=== PATIENT | female | born 1990 | race Two or more races ===

== ENCOUNTER → 2024-03-19 15:40 | Outpatient (CLI) | payer OTHER | END | disposition home or self-care (01) | LOC: PRENATAL 15:40 | PROVIDERS: ATTEND Obstetrics & Gynecology Maternal & Fetal Medicine | DX: O26.843 Uterine size-date discrepancy, third trimester (principal); O36.8130 Decreased fetal movements, third trimester, not applicable or unspecified; O99.013 Anemia complicating pregnancy, third trimester; Z3A.32 32 weeks gestation of pregnancy ==

== ENCOUNTER 2024-04-28 13:30 | Inpatient (IN) | payer OTHER ==
[~2024-04-28] VITALS: Ht 160 cm; Wt 68.0 kg
[2024-05-04 17:45] VITALS: BP 126/80
[2024-05-04] MEDS ORDERED: RINGERS SOLUTION,LACTATED 1,000 ML IV SCH (18:00)
[2024-05-04] MEDS ORDERED: PRENATAL TABLE1 EAC1 PO (18:00)
[2024-05-04] MEDS ORDERED: AMPICILLIN SODIUM 2,000 MG VIAL IV ONE (18:00)
[2024-05-04] MEDS ORDERED: IRON159 MG PO (18:01)
[2024-05-04 18:19] LABS: PH,URINE 6.5 (5.0-8.0); URINE APPEARANCE Clear; URINE BILIRRUBIN Negative (NEGATIVE); URINE BLOOD Negative; URINE COLOR Yellow; URINE GLUCOSE Negative (NEGATIVE); URINE LEUKOCYTE Negative; URINE NITRATE Negative; URINE PROTEIN Negative (NEGATIVE)
[2024-05-04 18:22] LABS: URINE BACTERIA 196.4 uL (0.0-1933); URINE EPITHELIAL CELLS 13.5 uL (0.0-38.8); URINE RBC 7.9 uL (0.0-20.8); URINE WBC 7.7 uL (0.0-23.2)
[2024-05-04 18:26] LABS: HEMATOCRIT 36.5 % (36.0-45.00); HEMOGLOBIN 12.4 g/dL (12.0-15.00); MEAN CELL VOLUME 85.3 fL (80.00-100.00); PLATELET COUNT 188 K/uL (150-450); RED BLOOD COUNT 4.28 M/uL (4.00-6.00); RED CELL DISTRIBUTION WIDTH 19.9 % (11.5-14.5)
[2024-05-04 18:29] LABS: URINE KETONE 40 (NEGATIVE)
[2024-05-04] MEDS ORDERED: MORPHINE SULFATE 4 MG/ML VIAL IV ONE (18:30)
[2024-05-04 18:39] LABS: INR < 0.93; PARTIAL THROMBOPLASTIN TIME 25.7 SECONDS (22.0-34.0); PROTHROMBIN TIME 9.9 SECONDS (9.0-11.5)
[2024-05-04 18:42] LABS: ALBUMIN 2.9 gm/dL (3.4-5.0); BILIRUBIN TOTAL 0.45 mg/dL (0.3-1.2); CALCIUM 8.8 mg/dL (8.5-10.1); CREATININE SERUM 0.5 mg/dL (0.55-1.02); GFR 143.9; GLOBULINA 3.7 G/DL (2.4-3.5); POTASSIUM 3.75 mEq/L (3.5-5.1); TOTAL PROTEIN 6.6 gm/dL (6.4-8.2)
[2024-05-04 18:47] VITALS: BP 128/73
[2024-05-04] MEDS ORDERED: OXYTOCIN 500 ML IV SCH (20:00)
[2024-05-04] MEDS ORDERED: AMPICILLIN SODIUM 1,000 MG VIAL IV SCH (21:00)
[2024-05-04] MEDS ORDERED: IBUprofen 400 MG TABLET PO PRN (22:15)
[2024-05-04 22:21] VITALS: BP 134/81
[2024-05-04 22:31] VITALS: BP 127/60
[2024-05-04] MEDS ORDERED: CHLORHEXIDINE GLUCONATE 120 ML BOTTLE TOP ONE (22:45)
[2024-05-04] MEDS ORDERED: ERYTHROMYCIN BASE OPHT 1GM EACH TUBE OP ONE (22:45)
[2024-05-04] MEDS ORDERED: OXYTOCIN 1,000 ML IV SCH (22:45)
[2024-05-04 22:46] VITALS: BP 118/77
[2024-05-04 23:20] VITALS: BP 120/75
[2024-05-05 00:30] VITALS: BP 131/84
[2024-05-05 05:23] VITALS: BP 129/84
[2024-05-05 07:03] LABS: HEMATOCRIT 32.5 % (36.0-45.00); HEMOGLOBIN 11.1 g/dL (12.0-15.00); MEAN CELL VOLUME 84.7 fL (80.00-100.00); MEAN CORPUSCULAR HEMOGLOBIN 28.9 pg (27.00-32.0); MEAN CORPUSCULAR HGB CONC 34.1 g/dl (32.0-36.0); PLATELET COUNT 183 K/uL (150-450); RED BLOOD COUNT 3.83 M/uL (4.00-6.00); RED CELL DISTRIBUTION WIDTH 20.1 % (11.5-14.5)
[2024-05-05 08:05] VITALS: BP 103/66
[2024-05-05] MEDS ORDERED: PNV,CALCIUM 72/IRON/FOLIC ACID 1 TAB TABLET PO SCH (09:00)
[2024-05-05 16:22] VITALS: BP 112/70
[2024-05-06] VITALS: BP 124/84
[2024-05-06 09:07] VITALS: BP 100/65
== END 2024-05-06 14:37 | disposition home or self-care (01) | DRG 807 ==
LOC: LDR 05-04 17:47 → OB/GYN 05-04 22:38
PROVIDERS: ADMIT Obstetrics & Gynecology; ATTEND Obstetrics & Gynecology
PROC: 10E0XZZ Delivery of Products of Conception, External Approach (ICD-10-PCS; principal; 2024-05-04)
PROC: 4A1HXCZ Monitoring of Products of Conception, Cardiac Rate, External Approach (ICD-10-PCS; 2024-05-04)
DX: O80 Encounter for full-term uncomplicated delivery (principal); Z37.0 Single live birth; Z3A.38 38 weeks gestation of pregnancy; Z20.822 Contact with and (suspected) exposure to COVID-19